=== PATIENT | female | born 1940 | race Caucasian/White ===

== ENCOUNTER → 2016-10-31 | Outpatient (CLI) | payer OTHER ==
[~2016-10-31] MED LIST: ACETAMINOPHEN PO; ANTI-DIARRHEAL2 M1 PO; ASPIRIN PO; ASPIRIN81 M1 PO; AVANDIA PO; BENAZEPRIL PO; BETAPACE PO; CALCIUM 600 +1 EAC2 PO; CARDIZEM PO; CARDIZEM30 MG PO; COREG6.25 MG PO; COUMADIN PO; COUMADIN5 MG PO; COUMADIN7.5 MG PO; DIGOX0.25 MG DOB; DIGOXIN125 MCG PO; DILTIAZEM 24HR360 M1 PO; EVISTA60 M1 PO; EVISTA60 MG PO; FUROSEMIDE40 MG PO; GLUCOPHAGE XR500 MG PO; GLUCOSAMINE500 M1 PO; GLUCOTROL XL PO; GLUMETZA1000 MG/BO PO; GLUMETZA500 MG/BOT PO; K-DUR20 ME1 PO; K-TAB ER20 MEQ PO; KCL PO; LANOXIN PO; LANOXIN125 MCG PO; LANTUS100 U/ML; LANTUS100 U/ML SUBQ; LANTUS100 UNITS/ SUBQ; LASIX PO; LASIX20 MG PO; LIPITOR PO; LIPITOR40 MG; LIPITOR40 MG PO; LISINOPRIL5 MG PO; LOMOTIL TABLET1 TAB PO; METFORMIN PO; METOPROLOL TAR100 MG PO; MICRO-K PO; MULTAQ400 MG PO; NORVASC PO; NOVOLOG100 U/ML; NOVOLOG100 U/ML SUBQ; ONGLYZA PO; OSTEO BI-FLEX; OSTEO-PORETICA1 EACH PO; POSTURE600 MG PO; SOTALOL120 MG PO; SYNTHROID PO; SYNTHROID0.15 MG PO; VESICARE PO; VITAMIN D1000 UNI1 PO; VITAMIN D3 PO; WELCHOL3.75 GM PO; XALATAN; XALATAN OP; XALATAN OS; XALATAN OU; XARELTO20 MG PO
--- NOTE | ~2016-10-31 | CT57 ---
[facility] A Service of [facility] & [facility] RADIOLOGY TEXT RESULTS PATIENT: JOEY SORTO [facility] UN[facility] #: [id number] AGE: [address]: Jose J Luz MD SEX: F ORDER DR: [id number] [facility] [address] [facility]. [place], [place] [address] [id number] O MR#: [id number] [facility] #: [id number] NAME: JOEY SORTO : 1940 SEX: F STUDY DATE/TIME: 10/31/2016 10:23 UNIT: [facility] ROOM: STUDY DESCRIPTION: CT Chest Wo Cont Attending Physician: Jose J Luz M.D. Referring Physician: Jose J Luz M.D. Ordering Physician: Jose J Luz M.D. Primary Care Physician: Ulysses Bundy M.D. MEDICAL IMAGING REPORT This report is preliminary unless electronic signature is present EXAM CT of the chest of without contrast. INDICATION Recurrent bouts of pneumonia, shortness of breath. Patient had an episode of shortness of air and wheezing and decreased oxygen saturations in June 2016 and was noted to have infiltrates within the right upper lobe. TECHNIQUE Axial CT images were obtained from the thoracic inlet through the dome of the diaphragm. No intravenous contrast material was administered. This CT exam was performed with one or more of the following radiation dose reduction techniques: automatic exposure control, adjustment of mA and/or kV according to patient size, and iterative reconstruction. FINDINGS Previously identified infiltrates within the right upper lobe have resolved. This patient does have some scarring within right middle lobe which is unchanged. I do not see any new infiltrates on today's examination. Left lung appears clear. Thyroid gland appears somewhat atrophic. Trachea is within normal limits. There is a small hiatal hernia. There are coronary artery calcifications. Mediastinal lymph nodes do not appear pathologically enlarged. Thoracic aorta measures within normal size limits. There is no pleural or pericardial effusion. Images through the upper abdomen demonstrate cholelithiasis. No other acute abnormalities seen within the upper abdomen. Review of bony windows does not demonstrate any aggressive osseous abnormalities. IMPRESSION STS. [facility] A Service of [facility] & [facility] RADIOLOGY TEXT RESULTS PATIENT: JOEY SORTO LOCATION: [facility] : 42 UNIT #: [id number] AGE: [address]: Jose J Luz MD SEX: F ORDER DR: 1. There is no acute intrathoracic processes identified. Previously identified right upper lobe infiltrates as well as bilateral pleural effusions have resolved. Lungs appear clear today with the exception of some minimal scarring within the right middle lobe. 2. Cholelithiasis. 3. Also noted but no mentioned in the report is some dystrophic calcifications of the mitral valve annulus. Dictated by... Ruth Garcia M.D. THIS IS AN ELECTRONICALLY VERIFIED REPORT Ruth Garcia M.D. at 10/31/2016 4:34 PM AFF/isidra TD: 10/31/2016 13:57 JOB #: [id number] MEDICAL IMAGING REPORT Page 1 of 1 COPY
== END | disposition home or self-care (01) ==
LOC: CCAT 09:20
DX: J18.9 Pneumonia, unspecified organism (principal); K80.20 Calculus of gallbladder without cholecystitis without obstruction; I34.8 Other nonrheumatic mitral valve disorders
CPT/HCPCS: 71250

== ENCOUNTER → 2016-10-31 | Outpatient (CLI) | payer OTHER ==
[2016-10-31 10:44] LABS: ALBUMIN SERUM 4.3 g/dL (3.5-5.0); BILIRUBIN,TOTAL 0.8 mg/dL (0.2-2.0); CALCIUM SERUM 9.6 mg/dL (8.4-10.2); GLOM FILT RATE Estimated 55.1 mL/min (>60); PROTEIN TOTAL SERUM 8.2 g/dL (6.0-8.3)
== END | disposition home or self-care (01) ==
LOC: CLAB 09:29
PROVIDERS: Internal Medicine Endocrinology, Diabetes & Metabolism
DX: E11.65 Type 2 diabetes mellitus with hyperglycemia (principal); E03.9 Hypothyroidism, unspecified
CPT/HCPCS: 36415; 80053; 80061; 83036; 84443

== ENCOUNTER 2017-04-12 21:45 | Emergency (ER) | payer OTHER ==
--- NOTE | ~2017-04-12 | EKG ---
PATIENT: JOEY SORTO UNIT #: [id number] Ventricular Rate: 87 BPM Atrial Rate: 87 BPM P-R Interval: 242 ms QRS Duration: 98 ms Q-T Interval: 392 ms QTC Calculation(Bezet): 471 ms P [place]: 66 degrees Calculated R [place]: 71 degrees Calculated T [place]: -100 degrees Diagnosis Line: Sinus rhythm with 1st degree A-V block Diagnosis Line: Voltage criteria for left ventricular hypertrophy Diagnosis Line: ST and T wave abnormality, consider inferolateral Diagnosis Line: ischemia Diagnosis Line: Prolonged QT Diagnosis Line: Abnormal ECG Diagnosis Line: When compared with ECG of 23-MAR-2015 17:22, Diagnosis Line: Sinus rhythm has replaced Atrial fibrillation Diagnosis Line: QT has lengthened Diagnosis Line: Confirmed by LUDIN KNOWLES MD ([id number]) on Diagnosis Line: 04/14/2017 11:30:28 AM INTERPRETING MD: BENSON BREWER
--- NOTE | ~2017-04-12 | CR72 ---
[facility] A Service of [facility] & [facility] RADIOLOGY TEXT RESULTS PATIENT: JOEY SORTO LOCATION: SED : 42 UNIT #: [id number] AGE: [address]: Eleanor Rhodes MD SEX: F ORDER DR: [id number] [address] [address] [id number] MR#: [id number] Acc #: [id number] NAME: JOEY SORTO : 1940 SEX: F STUDY DATE/TIME: 04/12/2017 22:11 UNIT: SED ROOM: STUDY DESCRIPTION: CR Chest Single View Portable Attending Physician: Eleanor Rhodes M.D. Ordering Physician: Eleanor Rhodes M.D. Primary Care Physician: Ulysses Bundy M.D. MEDICAL IMAGING REPORT This report is preliminary unless electronic signature is present. EXAM Portable chest. HISTORY Shortness of air today. Atrial fibrillation. FINDINGS Moderate interstitial prominence in the lower lungs is greater than on 07/16/2016 and there is slightly increased cardiac enlargement and vascular congestion as compared to prior exam. Findings suggest mild congestive heart failure and interstitial edema. No focal airspace consolidation. Probable minimal left pleural effusion. Left subclavian pacer leads extend into the right atrium and right ventricle. Dictated by... Neel Lainez M.D. THIS IS AN ELECTRONICALLY VERIFIED REPORT Neel Lainez M.D. at 04/13/2017 11:38 PM DFL/janelle TD: 04/13/2017 09:04 JOB #: [id number] MEDICAL IMAGING REPORT Page 1 of 1
[2017-04-12 22:08] LABS: ARTERIAL BLD GAS O2 SATURATION 87.4 % (90.0-100.0); ARTERIAL BLOOD GAS CARBOXY HB 2.6 %sat (0.0-9.0)
[2017-04-12 22:08] LABS: BASOPHIL# 0.1 X10e3 (0-0.3); BASOPHIL% 0.5 % (0-2.5); EOSINOPHIL% 0.3 % (0.0-7.0); HEMATOCRIT 39.1 % (35.0-45.0); HEMOGLOBIN 13.1 gm/dL (12.0-16.0); LYMPHOCYTE# 1.2 X10e3 (1.0-3.5); LYMPHOCYTE% 9.3 % (17.0-45.0); MEAN CELL VOLUME 90.3 FL (83-96); MEAN CORPUSCULAR HEMOGLOBIN 30.3 PG (28-34); MEAN CORPUSCULAR HGB CONC 33.6 g/dL (30-36); MEAN PLATELET VOLUME 9.9 FL (6.5-11.5); MONOCYTE# 0.8 X10e3 (0-1.0); MONOCYTE% 5.7 % (3.0-12.0); NEUTROPHIL# 11.3 X10e3 (1.5-7.1); NEUTROPHIL% 84.2 % (40-75); PLATELET COUNT 183 X10e3 (140-420); RED BLOOD COUNT 4.33 X10e (3.90-5.30); RED CELL DISTRIBUTION WIDTH 14.9 % (11.0-15.5); WHITE BLOOD COUNT 13.5 X10e3 (4.0-10.5)
[2017-04-12 22:10] LABS: ARTERIAL BLOOD GAS ALLEN TEST NORMAL; ARTERIAL BLOOD GAS ART SITE RIGHT RADIAL; ARTERIAL BLOOD GAS MET HB -1.8 %sat (0.0-2.0); ARTERIAL DRAW? YES
[2017-04-12 22:10] LABS: DIFF IND NO
[2017-04-12 22:21] LABS: POC - CKMB 3.5 ng/mL (0.0-7.9); POC - TROPONIN <0.05 ng/mL (<=0.05)
[2017-04-12 22:21] LABS: INR 1.5; PROTHROMBIN TIME (PATIENT) 17.4 SECONDS (9.5-12.4)
[2017-04-12 22:24] LABS: ALBUMIN SERUM 4.4 g/dL (3.5-5.0); BILIRUBIN, DIRECT 0.1 mg/dL (0.0-0.2); BILIRUBIN,INDIRECT 0.7 mg/dL (0.0-0.9); BILIRUBIN,TOTAL 0.8 mg/dL (0.2-2.0); BUN/CREATININE RATIO 22.5; CALCIUM SERUM 8.9 mg/dL (8.4-10.2); CREATININE SERUM 1.2 mg/dL (0.6-1.4); GLOM FILT RATE Estimated 43.9 mL/min (>60); MAGNESIUM 1.9 mg/dL (1.6-3.0); PROTEIN TOTAL SERUM 7.7 g/dL (6.0-8.3)
[2017-04-12 22:25] LABS: POTASSIUM 2.9 mmol/L (3.5-5.1)
[2017-04-12 22:28] LABS: PARTIAL THROMBOPLASTIN TIME 25.9 SECONDS (25.6-38.1)
[2017-04-13 01:29] LABS: POC - CKMB 3.6 ng/mL (0.0-7.9); POC - TROPONIN 0.12 ng/mL (<=0.05)
== END 2017-04-13 04:55 ==
LOC: SED 21:45
PROVIDERS: Student in an Organized Health Care Education/Training Program
DX: J81.1 Chronic pulmonary edema (principal); R09.02 Hypoxemia; I50.9 Heart failure, unspecified; E87.6 Hypokalemia; I11.0 Hypertensive heart disease with heart failure; I25.10 Atherosclerotic heart disease of native coronary artery without angina pectoris; I48.91 Unspecified atrial fibrillation; Z90.710 Acquired absence of both cervix and uterus; Z79.82 Long term (current) use of aspirin; Z79.899 Other long term (current) drug therapy
CPT/HCPCS: 36415; 36600; 51702; 71010; 80048; 80076; 82553; 82803; 83735; 83874; 83880; 84484; 85025; 85379; 85610; 85730; 93005; 96365; 96366; 99285; J1940